=== PATIENT | male | born 1980 | race Caucasian/White ===

== ENCOUNTER 2016-09-11 21:18 | Emergency (ER) | payer OTHER ==
[~2016-09-11] VITALS: Ht 175.3 cm; Wt 111.7 kg
[~2016-09-11 21:18] MED LIST: KEFLEX500 MG PO; NO HOME MEDS
[2016-09-11 21:45] LABS: BASE EXCESS 0.7 mEq/L (-3 to +3); BICARBONATE 25.4 mEq/L (22-26); CARBOXY HGB 2.7 % (0-5); COMMENTS - BLOOD GASES C+; METHEMOGLOBIN 0.9 % (0-1.5); PCO2 40 mm Hg (35-45); PO2 79 mm Hg (80-100); SITE LR; pH 7.41 (7.35-7.45)
[2016-09-11 21:46] LABS: MODE ROOM AIR; TOTAL RESP RATE 16 resp/min
[2016-09-11 22:37] LABS: HEMATOCRIT 48.2 % (38.0-50.0); MCH 27.2 PG (29.0-34.0); MCHC 33.4 G/DL (30.0-36.0); MCV 81.4 FL (86-99); MEAN PLAT.VOLUME 9.4 uM^3 (9.0-12.4); PLATELET COUNT 328 K/uL (156-360); RBC DIS.WIDTH-CV 13.2 % (11.8-14.6); RED BLOOD COUNT 5.92 M/uL (4.00-5.50); WHITE BLOOD COUNT 9.3 K/uL (4.1-10.2)
[2016-09-11 22:52] LABS: CREATINE KINASE 294 IU/L (1-294); TOTAL CK 294 IU/L (1-294)
[2016-09-11 22:57] LABS: CHLORIDE 103 mEq/L (99-109); SODIUM 139 mEq/L (136-147)
[2016-09-11 22:58] LABS: GLUCOSE 93 mg/dL (70-99)
[2016-09-11 23:00] LABS: ANION GAP 11 MEQ/L (2-14)
[2016-09-11 23:01] LABS: SERUM ETHYL ALCOHOL < 10 mg/dL
[2016-09-11 23:02] LABS: C-REACTIVE PROTEIN 6.7 MG/L (0-10); GFR ESTIMATE (CALCULATED) > 59 mL/min/; SAMPLE HEMOLYSIS CHECK 0; SAMPLE ICTERIC CHECK 0; SAMPLE LIPEMIA CHECK 0
[2016-09-11 23:03] LABS: UREA NITROGEN (BUN) 17 mg/dL (9-23)
[2016-09-11 23:05] LABS: CK-MB 2.5 ng/mL (0.0-4.9)
[2016-09-11 23:27] LABS: AMPHETAMINE NEGATIVE (500 ng/mL); BARBITURATES NEGATIVE (200 ng/mL); BENZODIAZEPINES NEGATIVE (150 ng/mL); COCAINE NEGATIVE (150 ng/mL); INTERNAL CONTROLS VALID? YES; METHADONE NEGATIVE (200 ng/mL); METHAMPHETAMINE NEGATIVE (500 ng/mL); OPIATES (MORPHINE) NEGATIVE (100 ng/mL); OXYCODONE NEGATIVE (100 ng/mL); PHENCYCLIDINE NEGATIVE (25 ng/mL); PROPOXYPHENE NEGATIVE (300 ng/mL); THC CANNABINOIDS NEGATIVE (50 ng/mL); TRICYCLIC ANTIDEPRESSANTS NEGATIVE (300 ng/mL)
[2016-09-11 23:44] LABS: ERTH.SED.RATE 8 MM/HR (0-15)
[2016-09-12 01:13] VITALS: BP 160/100
== END 2016-09-12 01:13 | disposition left against medical advice (07) ==
LOC: EME 21:18
PROVIDERS: Emergency Medicine
DX: R51 Headache (principal); I10 Essential (primary) hypertension; R41.0 Disorientation, unspecified
CPT/HCPCS: 36600; 70450; 80048; 82550; 82553; 82803; 83605; 85027; 85651; 86140; 99281; 99284; G0480

== ENCOUNTER 2017-12-15 14:29 | Emergency (ER) | payer OTHER ==
[~2017-12-15] VITALS: Ht 175.3 cm; Wt 117.7 kg
[2017-12-15] MEDS ORDERED: AUGMENTIN875 MG PO (14:53)
[2017-12-15 16:20] VITALS: BP 148/79
== END 2017-12-15 16:25 | disposition home or self-care (01) ==
LOC: EME 14:29
DX: S61.431A Puncture wound without foreign body of right hand, initial encounter (principal); S61.432A Puncture wound without foreign body of left hand, initial encounter; Z20.3 Contact with and (suspected) exposure to rabies; Z23 Encounter for immunization; Z29.14 Encounter for prophylactic rabies immune globulin; W55.01XA Bitten by cat, initial encounter; Y92.89 Other specified places as the place of occurrence of the external cause; Y99.0 Civilian activity done for income or pay
CPT/HCPCS: 99281; 99283

== ENCOUNTER 2017-12-18 15:52 | Emergency (ER) | payer OTHER ==
[~2017-12-18] VITALS: Ht 175.3 cm; Wt 116.6 kg
[~2017-12-18 15:52] MED LIST changes: +AUGMENTIN875 MG PO
[2017-12-18 17:30] VITALS: BP 150/96
== END 2017-12-18 18:10 | disposition home or self-care (01) ==
LOC: EME 15:52
PROC: 3E0234Z Introduction of Serum, Toxoid and Vaccine into Muscle, Percutaneous Approach (ICD-10-PCS; principal; 2017-12-18)
DX: S60.512D Abrasion of left hand, subsequent encounter (principal); S60.511D Abrasion of right hand, subsequent encounter; S61.452D Open bite of left hand, subsequent encounter; S61.451D Open bite of right hand, subsequent encounter; W55.03XD Scratched by cat, subsequent encounter; W55.01XD Bitten by cat, subsequent encounter; Z23 Encounter for immunization
CPT/HCPCS: 99281; 99284

== ENCOUNTER 2017-12-22 17:09 | Emergency (ER) | payer OTHER ==
[~2017-12-22] VITALS: Ht 175.3 cm; Wt 115.2 kg
[2017-12-22 18:53] VITALS: BP 148/97
== END 2017-12-22 18:55 | disposition home or self-care (01) ==
LOC: EME 17:09
PROC: 3E0234Z Introduction of Serum, Toxoid and Vaccine into Muscle, Percutaneous Approach (ICD-10-PCS; principal; 2017-12-22)
DX: Z23 Encounter for immunization (principal); Z20.3 Contact with and (suspected) exposure to rabies
CPT/HCPCS: 99281; 99283

== ENCOUNTER 2017-12-29 18:59 | Emergency (ER) | payer OTHER ==
[~2017-12-29] VITALS: Ht 175.3 cm; Wt 116.3 kg
[2017-12-29 19:01] VITALS: BP 170/100
== END 2017-12-29 22:13 | disposition home or self-care (01) ==
LOC: EME 18:59
PROC: 3E0234Z Introduction of Serum, Toxoid and Vaccine into Muscle, Percutaneous Approach (ICD-10-PCS; principal; 2017-12-29)
DX: S61.452D Open bite of left hand, subsequent encounter (principal); S61.451D Open bite of right hand, subsequent encounter; W55.01XD Bitten by cat, subsequent encounter; Z23 Encounter for immunization
CPT/HCPCS: 99281; 99283